=== PATIENT | female | born 1995 | race Caucasian/White ===

== ENCOUNTER 2017-04-11 21:07 | Outpatient (CLI) ==
[2015-03-17 18:48] VITALS: BMI 27.4
[2017-04-11 21:33] LABS: ALBUMIN 3.8 g/dL (3.4-5.0); ALBUMIN/GLOBULIN RATIO 0.93; ANION GAP 16.6; BILIRUBIN,TOTAL 0.82 mg/dL (0.00-1.20); BUN/CREATININE RATIO 12.35; CALCIUM 9.8 mg/dL (8.2-10.2); CREATININE 0.89 mg/dL (0.60-1.30); POTASSIUM 3.6 mmol/L (3.5-5.10); TOTAL PROTEIN 7.9 g/dL (6.4-8.2)
--- NOTE | 2017-04-11 22:08 | CT ---
EXAM: CT brain without and with contrast HISTORY: Headache TECHNIQUE: CT of the brain without and with intravenous contrast FINDINGS: There is no acute hemorrhage midline shift or mass effect. No hydrocephalus or abnormal e xtra-axial fluid collection. No significant parenchymal attenuation abnormality. Postcontrast shows no abnormal enhancement. Dural venous sinuses enhance as expected. No abnormal draining veins. Th e bony cranium appears normal. The visualized paranasal sinuses are clear. Soft tissues without signi ficant abnormality. IMPRESSION: 1. CT of the brain within normal limits.
== END 2017-04-11 21:08 | disposition home or self-care (01) ==
LOC: LAB 21:07
PROVIDERS: ATTEND Emergency Medicine
DX: R51 Headache (principal)
CPT/HCPCS: 36415; 80053

== ENCOUNTER 2017-11-24 10:29 | Outpatient (CLI) ==
[2015-03-17 18:48] VITALS: BMI 27.4
== END 2017-11-24 10:30 | disposition home or self-care (01) ==
LOC: LAB 10:29
PROVIDERS: ATTEND Family Medicine
DX: R03.0 Elevated blood-pressure reading, without diagnosis of hypertension (principal)
CPT/HCPCS: 36415; 80053; 81001; 85025; 85027